=== PATIENT | female | born 1965 | race Caucasian/White ===

== ENCOUNTER 2020-10-03 04:39 | Emergency (ER) | payer OTHER ==
[~2020-10-03 04:39] MED LIST: ALEV220T26 PO; ALPR0.25 PO; AMLO5TAB2 PO; BISAC5TA OR; CIPR500T89 PO; DICLOFENAC PO; HYDR200T3 PO; LISI-542 PO; LISINOP/HCTZ PO; MEDR4TAB PO; MEDR8TAB PO; METO1TAB32 PO; MYCO1TAB2 PO; OMEP1CAP73 PO; PRED5SOL2 PO; TRAM50TA2 PO; VITA500046 PO; XARE15TA PO; XARE20TA PO; birth control OR; lisinopril/hctz OR
[2020-10-03 05:25] LABS: BASO % 0.2 % (0.0-1.0); EOS % 0.2 % (0.0-3.0); HEMATOCRIT 40.2 % (36.0-47.0); HEMOGLOBIN 12.4 g/dl (12.0-15.5); LYMPH # 0.1 10^3/uL (1.5-5.0); LYMPH % 1.5 % (24.0-44.0); MEAN CORPUSCULAR HEMOGLOBIN 29.7 pg (27.0-33.0); MEAN CORPUSCULAR HGB CONC 30.8 g/dl (32.0-36.5); MEAN CORPUSCULAR VOLUME 96.2 fl (80.0-96.0); MONO # 0.2 10^3/uL (0.0-0.8); MONO % 3.5 % (0.0-5.0); NEUTROPHILS # 5.9 10^3/uL (1.5-8.5); NEUTROPHILS % 94.4 % (36.0-66.0); RED BLOOD COUNT 4.18 10^6/uL (4.00-5.40); WHITE BLOOD COUNT 6.2 10^3/uL (4.0-10.0)
[2020-10-03 05:26] LABS: PLATELET COUNT, AUTOMATED 28 10^3/uL (150-450)
[2020-10-03 05:54] LABS: ALBUMIN 3.9 GM/DL (3.2-5.2); ALT/SGPT 18 U/L (12-78); BILIRUBIN,DIRECT 0.2 MG/DL (0.0-0.2); BILIRUBIN,TOTAL 0.4 MG/DL (0.2-1.0); BLOOD UREA NITROGEN 13 MG/DL (7-18); CALCIUM LEVEL 8.3 MG/DL (8.5-10.1); CARBON DIOXIDE LEVEL 27 MEQ/L (21-32); CHLORIDE LEVEL 107 MEQ/L (98-107); CK-MB VALUE MASS < 1.0 NG/ML (<3.6); CPK CREATINE PHOSPHOKINASE 43 U/L (26-192); CREATININE FOR GFR 1.17 MG/DL (0.55-1.30); GLOMERULAR FILTRATION RATE 51.1 (>51); GLUCOSE, FASTING 109 MG/DL (70-100); LIPASE 100 U/L (73-393); MB/CK RELATIVE INDEX 2.33 (< OR =4); POTASSIUM SERUM 3.7 MEQ/L (3.5-5.1); SODIUM LEVEL 140 MEQ/L (136-145); TOTAL PROTEIN 7.3 GM/DL (6.4-8.2); TROPONIN I < 0.02 NG/ML (< 0.10)
[2020-10-03] MEDS ORDERED: NS 1,000 ML IV ONE (06:30)
[2020-10-03] MEDS ORDERED: ACETAMINOPHEN 500 MG TAB PO ONE (06:30)
[2020-10-03 07:02] LABS: C REACTIVE PROTEIN QUANTITATIV 0.62 MG/DL (0.00-0.30)
[2020-10-03 07:27] LABS: ERYTHROCYTE SEDIMENTATION RATE 19 mm/hr (0-30)
--- NOTE | 2020-10-03 08:03 | REP ---
INDICATION: SOB. COMPARISON: . PA and lateral chest dated 04/09/2014. TECHNIQUE: Portable chest, 2 AP views. FINDINGS: The lung box are clear. The cardiac size is normal. The linda, mediastinum, and skeletal structures are unremarkable. IMPRESSION: Negative portable chest. There is no interval change. <Electronically signed by Claude Dey > 10/03/20 0800
--- NOTE | 2020-10-03 08:07 | REP ---
INDICATION: suprapubic abd pain. COMPARISON: None. TECHNIQUE: Single AP view of the abdomen performed portably. A portion of the abdomen is excluded at the left film margin. FINDINGS: The bowel gas pattern is normal. There are 2 calcifications inferiorly in the pelvis to the left of midline, nonspecific, phleboliths versus ureteral. The skeletal structures and soft tissues otherwise are unremarkable. IMPRESSION: Pelvic calcifications, nonspecific, phleboliths versus ureteral. Normal bowel gas pattern. <Electronically signed by Claude Dey > 10/03/20 0811
[2020-10-03] MEDS ORDERED: ISOVUE-370 76% 100ML VIAL As Ordered ONE (08:33)
--- NOTE | 2020-10-03 09:23 | REP ---
INDICATION: SOB. COMPARISON: 04/10/[address] angio. TECHNIQUE: CT of chest with IV contrast, pulmonary artery angiography protocol. FINDINGS: There are no emboli in the pulmonary trunk or central pulmonary arteries. There are no emboli in the pulmonary artery lobar segment branches. There are no infiltrates or pleural effusions. Exam there are no masses or nodules. There is no mediastinal, hilar are or axillary lymph node enlargement. There is bilateral breast augmentation. This is unchanged. The visualized upper abdominal contents are unremarkable. IMPRESSION: There are no pulmonary emboli. Bilateral breast augmentation, unchanged. Otherwise, negative CT study of the chest. <Electronically signed by Claude Dey > 10/03/20 7781
--- NOTE | 2020-10-03 09:30 | REP ---
INDICATION: SOB. COMPARISON: Chest CT performed the same date.. TECHNIQUE: Abdomen pelvis CT with IV contrast, without bowel contrast FINDINGS: The visualized lung box are unremarkable. The hepatic parenchyma, gallbladder, pancreas and spleen are normal size and unremarkable. The adrenals and kidneys are unremarkable. Abdominal aorta is unremarkable. There is no periaortic adenopathy or mass. There is no bowel distention or obstruction. The mesentery is unremarkable. There is no free fluid. Pelvis: The uterus, adnexa and bladder are unremarkable. There is no ascites or adenopathy. There is bilateral breast augmentation. IMPRESSION: Essentially negative CT study of the abdomen and pelvis. <Electronically signed by Claude Dey > 10/03/20 0959
[2020-10-03 09:42] LABS: CK-MB VALUE MASS < 1.0 NG/ML (<3.6); CPK CREATINE PHOSPHOKINASE 39 U/L (26-192); MB/CK RELATIVE INDEX 2.56 (< OR =4); TROPONIN I < 0.02 NG/ML (< 0.10)
[2020-10-03 09:59] VITALS: O2SAT 99
[2020-10-03] MEDS ORDERED: BENZONATATE 100 MG CAP PO ONE (14:30)
[2020-10-03] MEDS ORDERED: ACETAMINOPHEN 325 MG TAB PO ONE (14:30)
[2020-10-03] MEDS ORDERED: LISI2.5T2 PO (15:25)
[2020-10-03] MEDS ORDERED: REST0.05 OU (15:26)
[2020-10-03 17:45] VITALS: BP 119/75
[2020-10-03] MEDS ORDERED: ONDA8TAB8 PO (17:56)
--- NOTE | 2020-10-04 08:20 | ECGEPIP ---
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
--- NOTE | 2020-10-04 08:21 | ECGEPIP ---
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
== END 2020-10-03 18:26 | disposition home or self-care (01) ==
LOC: M ED 04:39 → EEVIPCON 04:39 → M ED 18:26
DX: U07.1 COVID-19 (principal); D69.3 Immune thrombocytopenic purpura; Z20.828 Contact with and (suspected) exposure to other viral communicable diseases; N39.0 Urinary tract infection, site not specified; M32.9 Systemic lupus erythematosus, unspecified; I11.9 Hypertensive heart disease without heart failure; K21.9 Gastro-esophageal reflux disease without esophagitis; F41.9 Anxiety disorder, unspecified; M10.9 Gout, unspecified; I73.00 Raynaud's syndrome without gangrene; Z87.891 Personal history of nicotine dependence; Z88.0 Allergy status to penicillin; Z88.2 Allergy status to sulfonamides; Z88.1 Allergy status to other antibiotic agents; Z79.899 Other long term (current) drug therapy
CPT/HCPCS: 36415; 71045; 71275; 74018; 74177; 80048; 80076; 81001; 82550; 82553; 83605; 83690; 85025; 85049; 85055; 85652; 86140; 87631; 93005; 93041; 96360; 96361; 99285; Q9967

== ENCOUNTER 2020-10-04 09:48 | Emergency (ER) | payer OTHER ==
[~2020-10-04 09:48] MED LIST changes: +LISI2.5T2 PO; +ONDA8TAB8 PO; +REST0.05 OU
[2020-10-04 10:15] VITALS: BP 110/61
== END 2020-10-04 11:11 | disposition home or self-care (01) ==
LOC: M ED 09:48
DX: U07.1 COVID-19 (principal); M35.3 Polymyalgia rheumatica; M32.9 Systemic lupus erythematosus, unspecified; Z86.2 Personal history of diseases of the blood and blood-forming organs and certain disorders involving the immune mechanism; Z86.711 Personal history of pulmonary embolism; Z87.891 Personal history of nicotine dependence; Z88.0 Allergy status to penicillin; Z88.2 Allergy status to sulfonamides; Z88.1 Allergy status to other antibiotic agents; Z79.899 Other long term (current) drug therapy

== ENCOUNTER 2020-10-04 12:16 | Outpatient (CLI) | payer OTHER ==
--- NOTE | 2020-10-04 11:56 | IPNPDOC ---
Date Seen The patient was seen on 10/04/20. Progress Note S: Patient complain of some chills, rigors, dysuria, urgency, frequency, back pain 2 days ago with the dyspepsia seen in the ER yesterday and was found to be positive for Covid 19. She denies any fever ,shortness of breath, chest pain, pressure, tightness, changes in vision, loss of taste. She admits to having a headache yesterday Better with Tylenol.ER contacted hospitalist for outpatient IV infusion. M onoclonal antibody IV infusion fact sheet with risk and benefits of the infusion was provided by the ER to the patient. Patient signed consent form. O: PE VS see below GEN: Awake, alert, oriented 3, answering questions appropriately. No respiratory distress. No pallor, icterus HEENT: No JVD, thyromegaly, no cyanosis. Tongue is midline. No lymphadenopathy. Lungs:Clear to auscultation. Wheezing, rales or rhonchi Heart: S1, S2, sinus rhythm, no murmurs, rubs or gallops. ABD:Soft, nontender, nondistended, positive bowel sounds Ext: No cyanosis, clubbing or pitting edema labs: see below A/P: covid (+) lupus gout abnormal heart valve shingles myocardiitis tachycardia ITP hypertension pulmonary embolism vasculitis raynaud's 2p2 snyder's palsy GERD -pt was given the monoclonal antibody fact sheet, and consented to receive the iv infusion. She has been given the risks and benefits of the treatment, and agrees with treatment. -Patient may be discharged 2 hours after IV infusion if no side effects are noted. Outpatient follow-up with her primary care physician within one week GAEL LOVELACE MD Oct 04, 2020 11:38
[~2020-10-04 12:16] MED LIST changes: +ALBUTEROL 90 MCG/ACT 8GM HFA INHALER INH PRN; +ALBUTEROL SULFATE 2.5 MG/0.5 ML INH NEB SOLN INH PRN; +BAMLANIVIMAB 700 MG in NS 180 ML IV ONE; +EPINEPHrine INJ 1 MG/ML 1ML AMP IM PRN; +NS 1,000 ML IV SCH; +diphenhydrAMINE 50MG/ML VIAL (J1200) IV PRN; +methylPREDNISolone 125MG 2ML VIAL IV PRN
[2020-10-04 12:53] VITALS: BP 142/74
[2020-10-04 12:56] VITALS: BP 142/74
[2020-10-04 13:25] VITALS: BP 134/72
[2020-10-04 13:59] VITALS: BP 128/89
[2020-10-04 15:08] VITALS: BP 130/71
== END 2020-10-04 15:45 | disposition home or self-care (01) ==
LOC: M 4MAIN 12:16 → M OPCLI4 12:16
PROVIDERS: ATTEND General Practice
DX: U07.1 COVID-19 (principal); Z88.0 Allergy status to penicillin; Z88.2 Allergy status to sulfonamides

== ENCOUNTER → 2020-10-25 | Outpatient (CLI) | payer OTHER ==
[~2020-10-25] MED LIST changes: -ALBUTEROL 90 MCG/ACT 8GM HFA INHALER INH PRN; -ALBUTEROL SULFATE 2.5 MG/0.5 ML INH NEB SOLN INH PRN; -BAMLANIVIMAB 700 MG in NS 180 ML IV ONE; -EPINEPHrine INJ 1 MG/ML 1ML AMP IM PRN; -NS 1,000 ML IV SCH; -diphenhydrAMINE 50MG/ML VIAL (J1200) IV PRN; -methylPREDNISolone 125MG 2ML VIAL IV PRN
--- NOTE | 2020-10-25 10:03 | REP ---
INDICATION: ABN PLATLETTES, EVAL LIVER/SPLEEN COMPARISON: CT dated 10/03/2020 TECHNIQUE: Real time B-mode gandhi scale ultrasound examination using curved array transducer. FINDINGS: Liver, spleen, and pancreas are normal in contour, size, echogenicity, and overall appearance. No focal hepatic, splenic or pancreatic lesions are identified. Spleen measures 10.0 x 4.2 x 9.3 cm (splenic index 378). Gallbladder is normal and without gallstones, wall thickening, or pericholecystic fluid. No intrahepatic or extrahepatic biliary ductal dilatation is appreciated. The common bile duct measures 4.5 mm diameter. The bilateral kidneys are normal in reniform shape and echogenicity without hydronephrosis or obvious abnormality. Right kidney measures 10.6 x 4.1 x 3.6 cm. Left kidney measures 10.9 x 5.2 x 3.9 cm. Visualized portions of the abdominal aorta are normal and measures 2.1 cm maximal diameter. No ascites in the visualized abdomen. IMPRESSION: Normal complete abdominal ultrasound. <Electronically signed by Vimal Ross > 10/25/20 2422
== END ==
LOC: M RAD 09:09
PROVIDERS: ATTEND Internal Medicine Hematology & Oncology
DX: R79.9 Abnormal finding of blood chemistry, unspecified (principal)